=== PATIENT | female | born 1950 | race Caucasian/White ===

== ENCOUNTER 2024-05-18 15:30 | Emergency (ER) | payer OTHER, MEDICARE, SELFPAY ==
[2024-05-18 15:32] VITALS: BP 150/83
[2024-05-18 15:48] LABS: % Basophils 0.9 % (0-2); % Eosinophils 1.7 % (0-6); % Immature Granulocytes 0.3 % (0-0.5); % Lymphocytes 49.2 % (20.5-51.1); % Monocytes 11.1 % (1.7-9.3); % Neutrophils 36.8 % (42.2-75.2); Absolute Basophils 0.1 10^3/uL (0-0.2); Absolute Eosinophils 0.1 10^3/uL (0-0.7); Absolute Lymphocytes 3.3 10^3/uL (1.2-3.4); Absolute Monocytes 0.7 10^3/uL (0.1-0.6); Absolute Neutrophils 2.5 10^3/uL (1.4-6.5); Hematocrit 44.3 % (37.0-47.0); Hemoglobin 14.8 g/dL (12.0-16.0); Mean Corp Hgb Conc. 33.4 g/dL (33.0-37.0); Mean Corpuscular Hgb 30.6 pg (27.0-31.0); Mean Corpuscular Volume 91.5 fL (81.0-99.0); Mean Platelet Volume 11.6 fL (7.4-10.4); Nucleated Red Blood Cells % 0 %; Platelet Count 165 10^3/uL (130-400); Red Blood Cell Count 4.84 10^6/uL (4.20-5.40); White Blood Cell Count 6.7 10^3/uL (4.8-10.8)
[2024-05-18 16:00] VITALS: BP 145/75
[2024-05-18 16:01] LABS: ALT (SGPT) 75 U/L (0-35); AST (SGOT) 53 U/L (14-36); Albumin 4.6 g/dl (3.5-5.0); Alkaline Phosphatase 90 U/L (38-126); Blood Urea Nitrogen 29 mg/dl (7-17); Calcium 9.7 mg/dl (8.4-10.2); Carbon Dioxide 26 mmol/L (22-30); Chloride 105 mmol/L (98-107); Glucose 90 mg/dl (70-99); Potassium 4.3 mmol/L (3.5-5.1); Sodium 140 mmol/L (135-145); Total Bilirubin 0.5 mg/dl (0.2-1.3); Total Protein 7.7 g/dl (6.3-8.2); eGFR > 60.00
--- NOTE | 2024-05-18 17:08 | ED.GENMED ---
History of Present Illness
General
Chief Complaint: Skin Problem
Source: patient and family (Daughter)
Time Seen by Provider: 05/18/24 17:00
History of Present Illness
History of Present Illness:
Patient with a painful swollen mildly draining area to the right index finger. Started 2 weeks ago after having her nails done. This has happened previous occasionally but usually can self resolved. Symptoms have not gone away. No systemic
symptoms denying fever chills no swelling or redness of the arm. No streak up the arm. They are going away in the near future and want this evaluate
Past History
Past History
ED Past Medical History: HTN
ED Past Surgical History: Appendectomy
Social History
Tobacco: Non-smoker
Alcohol: None
Drug: None
Living: with family
Review of Systems
Review of Systems
All Other Systems: Not applicable
Constitutional: Denies fever or chills
Phy Exam
Physical Exam
Physical Exam:
General: Nontoxic appearing in no distress small granuloma on the right second digit on the radial side of the nail. There is a acrylic covering to the nail. There is minimal clear like drainage. No fluctuance. No tuft swelling. No hand
swelling cellulitis or lymphangitis.
Skin: Warm and dry, no rash
Neuro: Alert, nontoxic, grossly nonfocal
Psychiatric: Good eye contact and appropriate
Musculoskeletal:
Course
Orders/Labs/Results
Orders:
Orders
05/18/24 15:38
Complete Blood Count/With Diff Urgent
Comprehensive Metabolic Panel Urgent
05/18/24 17:11
Cephalexin Monohydrate [Keflex] 500 mg PO NOW STA
05/18/24 17:26
Wound Culture [Wound/Abscess/Other Culture] Urgent
KHADIJAH Source: Finger Nail
Specimen Description:
Date Specimen was Collected: 05/18/24
Time Specimen was Collected: 17:16
Abnormal Lab Results
05/18/24
15:38
MPV 11.6 H fL
(7.4-10.4)
Absolute Monos (auto) 0.7 H 10^3/uL
(0.1-0.6)
Neutrophils % 36.8 L %
(42.2-75.2)
Monocytes % 11.1 H %
(1.7-9.3)
BUN 29 H mg/dl
(7-17)
AST 53 H U/L
(14-36)
ALT 75 H U/L
(0-35)
05/18/24 15:38
05/18/24 15:38
Vital Signs
Initial and Last Documented VS:
Initial Vital Signs
Temp Pulse Resp BP Pulse Ox
97.9 F 60 16 150/83 99
05/18/24 15:32 05/18/24 15:32 05/18/24 15:32 05/18/24 15:32 05/18/24 15:32
Last Documented Vital Signs
Temp Pulse Resp BP Pulse Ox
97.9 F 89 18 145/75 100
05/18/24 15:32 05/18/24 16:00 05/18/24 16:00 05/18/24 16:00 05/18/24 16:00
MDM/Problems Addressed
Differential Diagnosis Includes:
Appears to be a local paronychia like infection. Nothing to drain at this time. Contemplated removing that corner of the nail but will be somewhat difficult with the acrylic covering. Not a clear-cut ingrown nail. Will treat with antibiotics
topical mupirocin wound culture and follow-up. I did discuss with the patient and daughter that this may need further nail removal at some point if this does not improve
*Pulse Oximetry
Patient hypoxic: no
*Critical Care Note
Total Time (30-74mins, 75-104mins- exclusive of procedures): Not Applicable
ED Attending Note
-
Portions of this chart may have been created with voice recognition software.� Occasional wrong word or��sound alike� substitutions may have occurred due to the inherent limitations of voice recognition software.
Discharge Plan
Departure
Patient Disposition: Home (Routine Discharge)
Date of Disposition: 05/18/24
Time of Disposition: 17:11
Patient with high blood pressure during this ER visit?: Yes
Discharge Problem:
Paronychia/granuloma right 2nd digit
Instructions: Cellulitis (Skin Infection), Adult (DC), Paronychia ED, BLOOD PRESSURE
Prescriptions:
New
cephalexin 500 mg capsule
500 mg PO Q8H 10 Days Qty: 30 0RF
mupirocin 2 % ointment
1 applic topical BID Qty: 22 0RF
No Action
amlodipine 10 MG tablet
10 mg PO DAILY
metoprolol succinate 25 MG tablet extended release 24 hr
25 mg PO DAILY
Activity Restrictions/Additional Instructions:
The culture should be back in 2 to 3 days
Antibiotics and ointment as prescribed
Get rechecked in 3 to 4 days, however return sooner with increased swelling redness drainage fever or any other concerning symptoms.
As we discussed, if this persist that nail may be need to be partially removed
Interventions
Interventions:
*Risk Screen - Suicide Last Done: 05/18/24 15:35
*General Assessment Last Done: 05/18/24 17:28
*Neglect/Abuse Screening Last Done: 05/18/24 15:35
*Nursing Disposition Last Done: 05/18/24 17:28
ED-Skin Assessment Last Done: 05/18/24 16:40
Discharge Date and Time
Discharge Date/Time: 05/18/24 17:29
Print Language: [place] IRISH
[2024-05-18] MEDS: KEFLEX 500 MG PO (17:28)
== END 2024-05-18 17:29 | disposition home or self-care (01) ==
LOC: EMR 15:30
PROVIDERS: Emergency Medicine; EMERGENCY PHYSICIAN Emergency Medicine; FAMILY PHYSICIAN Family Medicine
DX: L03.011 Cellulitis of right finger (principal); I10 Essential (primary) hypertension
CPT/HCPCS: 99283; 80053; 85025; 87070; 87205

== ENCOUNTER → 2024-10-21 06:50 | Outpatient (REF) | payer OTHER, SELFPAY | LOC: RCS 06:50 | PROVIDERS: ATTENDING PHYSICIAN Internal Medicine Cardiovascular Disease; FAMILY PHYSICIAN Nurse Practitioner Adult Health | DX: I10 Essential (primary) hypertension (principal) | CPT/HCPCS: 78452; 93017; A9500; J2785 ==

== ENCOUNTER → 2024-10-29 09:24 | Outpatient (REF) | payer OTHER, SELFPAY | LOC: RCS 09:24 | PROVIDERS: ATTENDING PHYSICIAN Internal Medicine Cardiovascular Disease; FAMILY PHYSICIAN Nurse Practitioner Adult Health | DX: I10 Essential (primary) hypertension (principal) | CPT/HCPCS: 93306 ==

== ENCOUNTER 2024-11-01 06:00 | Day surgery (SDC) | payer OTHER, SELFPAY ==
[2024-10-30 13:21] VITALS: BMI 33.7
[2024-10-30 13:41] LABS: % Basophils 0.6 % (0-2); % Eosinophils 1.3 % (0-6); % Immature Granulocytes 0.2 % (0-0.5); % Lymphocytes 45.1 % (20.5-51.1); % Neutrophils 42.8 % (42.2-75.2); Absolute Eosinophils 0.1 10^3/uL (0-0.7); Absolute Lymphocytes 2.8 10^3/uL (1.2-3.4); Absolute Monocytes 0.6 10^3/uL (0.1-0.6); Absolute Neutrophils 2.6 10^3/uL (1.4-6.5); Hematocrit 43.6 % (37.0-47.0); Hemoglobin 14.8 g/dL (12.0-16.0); Mean Corp Hgb Conc. 33.9 g/dL (33.0-37.0); Mean Corpuscular Hgb 29.8 pg (27.0-31.0); Mean Corpuscular Volume 87.9 fL (81.0-99.0); Mean Platelet Volume 11.9 fL (7.4-10.4); Nucleated Red Blood Cells % 0 %; Platelet Count 158 10^3/uL (130-400); Red Blood Cell Count 4.96 10^6/uL (4.20-5.40); White Blood Cell Count 6.2 10^3/uL (4.8-10.8)
[2024-10-30 14:03] LABS: ALT (SGPT) 74 U/L (0-35); AST (SGOT) 50 U/L (14-36); Albumin 4.7 g/dl (3.5-5.0); Alkaline Phosphatase 92 U/L (38-126); Blood Urea Nitrogen 22 mg/dl (7-17); Calcium 9.4 mg/dl (8.4-10.2); Carbon Dioxide 21 mmol/L (22-30); Chloride 109 mmol/L (98-107); Estimated Creatinine Clearance 67 ml/min; Glucose 125 mg/dl (70-99); Potassium 4.6 mmol/L (3.5-5.1); Sodium 139 mmol/L (135-145); Total Bilirubin 0.8 mg/dl (0.2-1.3); Total Protein 7.5 g/dl (6.3-8.2); eGFR > 60.00
[2024-11-01] VITALS (15 sets, daily range): BP systolic 116–138; BP diastolic 59–78
[2024-11-01] MEDS: LOW STRENGTH ASPIRIN 243 MG PO (06:53)
[2024-11-01] MEDS: NSS 261 ML IV (06:55)
--- NOTE | 2024-11-01 08:04 | ITS.CL.PN ---
[facility] - Procedure Note
Procedure
Procedure Note:
CARDIAC CATHETERIZATION REPORT
Date of Procedure: 11/01/2024
Referring: Dr. Chuck Heard MD
Indication: Positive cardiac stress test
PROCEDURE(S)
1. left heart catheterization
2. coronary angiography
ACCESS: 6F right radial artery (closure: radial band)
CATHETERS
1. 6F JR4
2. 6F JL3.5
MODERATE SEDATION: 25 minutes of moderate sedation was utilized. An independent emergency medical services coordinator was present to assist with and help manage the patient's level of consciousness and physiologic status.
HEMODYNAMIC DATA
LV 138/15 (EDP 21) mmHg
AO 146/77 (mean 100) mmHg
CORONARY ANGIOGRAPHY
Dominance: Right
LM: Large, normal
LAD: Large vessel giving rise to medium caliber D1 and small D2 before wrapping around the apex. There are trivial luminal irregularities only.
LCx: Large vessel giving rise to a large caliber OM1 and small LPL branch. There are trivial luminal irregularities only.
RCA: Large vessel giving rise to a medium caliber RPDA and several small RPL branches. There are trivial luminal irregularities only.
RADIATION: dose 251 mGy; DAP 15 Gy*cm2; fluoroscopy time 4.0 min
CONCLUSIONS
1. Normal coronary arteries as described in a right dominant system
2. Mildly elevated LV filling pressure and no aortic stenosis
RECOMMENDATIONS
1. Primary prevention of coronary artery disease
2. Medical management of palpitations
Copy to: Dr. Chuck Heard MD (community service specialist); Kiesha Navarro NP (PCP)
Signed: Nabil Richards MD, PhD
[2024-11-01] MEDS: NSS 1000 IV (08:47)
== END 2024-11-01 11:24 | disposition home or self-care (01) ==
LOC: CATH 06:00
PROVIDERS: ATTENDING PHYSICIAN Student in an Organized Health Care Education/Training Program; FAMILY PHYSICIAN Nurse Practitioner Adult Health; OTHER PHYSICIAN Internal Medicine Cardiovascular Disease
DX: R94.39 Abnormal result of other cardiovascular function study (principal); R94.31 Abnormal electrocardiogram [ECG] [EKG]; R00.2 Palpitations; I48.91 Unspecified atrial fibrillation; I10 Essential (primary) hypertension; I47.10 Supraventricular tachycardia, unspecified; I49.3 Ventricular premature depolarization; E78.5 Hyperlipidemia, unspecified; I34.0 Nonrheumatic mitral (valve) insufficiency; K76.0 Fatty (change of) liver, not elsewhere classified; M19.90 Unspecified osteoarthritis, unspecified site; R73.03 Prediabetes; E66.9 Obesity, unspecified; Z68.33 Body mass index [BMI] 33.0-33.9, adult; Z87.891 Personal history of nicotine dependence; Z79.01 Long term (current) use of anticoagulants
CPT/HCPCS: 99152; 99153; C1894; C1769; 36415; 80053; 85025; 93005; 93458; Q9967

== ENCOUNTER 2024-11-08 21:18 | Emergency (ER) | payer OTHER, SELFPAY ==
[2024-11-08 21:20] VITALS: BP 174/86
[2024-11-08 23:55] VITALS: BP 163/78
--- NOTE | 2024-11-09 00:28 | ED.GENMED ---
History of Present Illness
General
Chief Complaint: DVT/Possible Blood Clot
Source: patient and family (Daughter at bedside)
Exam Limitations: none
Time Seen by Provider: 11/08/24 23:56
Nursing documentation reviewed up to this point in time: agreed with
History of Present Illness
History of Present Illness:
74-year-old female with history of HTN, had a cardiac catheterization 7 days ago here and it was clear, they accessed through her right wrist and she states she has had swelling and pain in the right forearm since. She is on Eliquis. Her daughter
is concerned about a blood clot.
Past History
Past History
ED Past Medical History: HTN
ED Past Surgical History: Appendectomy
Social History
Tobacco: Non-smoker
Alcohol: None
Drug: None
Living: with family
Review of Systems
Review of Systems
Allergies reviewed?: Yes
All Other Systems: ROS reviewed and negative except as documented in HPI and ROS
Constitutional: Denies fever
Musculoskeletal: Reports other (Swelling and pain right forearm)
Neurological: Reports other (Bruising anterior aspect of right wrist)
Phy Exam
Physical Exam
Physical Exam:
GENERAL: No acute distress. A&Ox3.
CONSTITUTIONAL: Afebrile.
RESPIRATORY: Regular respirations, nonlabored, lungs clear.
CARDIOVASCULAR: Regular rate and rhythm, no murmurs, no rubs.
GI: Soft, nontender, normal BS
MUSCULOSKELETAL: Right arm is mildly swollen from the elbow to the wrist compared to the left arm, tender to palpate along the anterior aspect of the forearm. No palpable masses. Distal neurovascular intact. Moves with ease. Well perfused.
SKIN: Warm, dry, pink, old ecchymosis anterior aspect right wrist
PSYCH: Normal mood and affect. Well kept, interactive and appropriate
NEUROLOGIC: Awake, alert and oriented. No focal neurological deficits
Course
Orders/Labs/Results
Orders:
Orders
11/08/24 21:23
US Arms, Right [US Periph Venous UPPER Ext RT] Urgent
Comment:
Reason For Exam: swelling, redness and pain
Vital Signs
Initial and Last Documented VS:
Initial Vital Signs
Temp Pulse Resp BP Pulse Ox
98.2 F 55 20 174/86 95
11/08/24 21:20 11/08/24 21:20 11/08/24 21:20 11/08/24 21:20 11/08/24 21:20
Last Documented Vital Signs
Temp Pulse Resp BP Pulse Ox
98.2 F 58 14 137/74 98
11/08/24 21:20 11/09/24 02:38 11/09/24 02:38 11/09/24 02:38 11/09/24 02:38
MDM/Problems Addressed
Differential Diagnosis Includes:
cellulitis, superficial phlebitis, DVT
MDM/Problems Addressed:
74-year-old female with history of HTN, had a cardiac catheterization 7 days ago here and it was clear, they accessed through her right wrist and she states she has had swelling and pain in the right forearm since. She is on Eliquis. Her daughter
is concerned about a blood clot.
US neg for DVT
No sign of cellulitis.
*Critical Care Note
Total Time (30-74mins, 75-104mins- exclusive of procedures): Not Applicable
ED Attending Note
-
Portions of this chart may have been created with voice recognition software.� Occasional wrong word or��sound alike� substitutions may have occurred due to the inherent limitations of voice recognition software.
Discharge Plan
Departure
Patient Disposition: Home (Routine Discharge)
Date of Disposition: 11/09/24
Time of Disposition: 02:43
Patient with high blood pressure during this ER visit?: No
Condition: Good
Discharge Problem:
Swelling of right upper extremity
Prescriptions:
No Action
rosuvastatin 10 mg Tablet
10 mg PO DAILY
nifedipine 60 mg Tablet Extended Release
60 mg PO HS
ezetimibe 10 mg Tablet
10 mg PO DAILY
cholecalciferol (vitamin D3) [Vitamin D3] 50 mcg (2,000 unit) Capsule
50 mcg PO DAILY
Eliquis 5 mg Tablet
5 mg PO BID
ascorbic acid (vitamin C) [Vitamin C] 1,000 mg Tablet
1,000 mg PO DAILY
omega 6-cco-dda-fish oil [Fish Oil] 1,200 (144-216) mg Capsule
1 cap PO DAILY
metoprolol succinate 50 mg Tablet Extended Release 24 Hr
50 mg PO DAILY
Referrals:
UNKNOWN - PT DOES,NOT KNOW [Family Provider]
Activity Restrictions/Additional Instructions:
As we discussed, no DVT. Tylenol as needed for pain.
Warm moist compress 3 times a day for 20 minutes may help.
Interventions
Interventions:
*Risk Screen - Suicide Last Done: 11/09/24 01:01
*General Assessment Last Done: 11/08/24 21:20
*Neglect/Abuse Screening Last Done: 11/09/24 01:01
*ED- Fall Risk Assessment Last Done: 11/09/24 01:01
*Nursing Disposition Last Done: 11/09/24 02:46
ED- Pulmonary Assessment Last Done: 11/09/24 01:01
ED-Peripheral Vascular Assessment Last Done: 11/09/24 01:01
ED-Skin Assessment Last Done: 11/09/24 01:01
Discharge Date and Time
Discharge Date/Time: 11/09/24 02:46
Print Language: FINNISH
[2024-11-09 01:01] VITALS: BMI 33.3
[2024-11-09 02:38] VITALS: BP 137/74
== END 2024-11-09 02:46 | disposition home or self-care (01) ==
LOC: EMR 21:18
PROVIDERS: EMERGENCY PHYSICIAN Emergency Medicine
DX: R22.31 Localized swelling, mass and lump, right upper limb (principal); Z79.01 Long term (current) use of anticoagulants
CPT/HCPCS: 99284; 93971